=== PATIENT | female | born 1940 | race Caucasian/White ===

== ENCOUNTER 2018-07-09 12:28 | Outpatient (CLI) | payer MEDICARE, BC ==
--- NOTE | 2018-07-09 14:19 | CT ---
CT BRAIN WITHOUT CONTRAST: HISTORY: Contusion of face, fell in bathroom. Bruising around the right eye and complains of headache. FINDINGS: There are changes of cortical atrophy and chronic small-vessel ischemic disease. The ventricular siz e is appropriate and the basilar cisterns patent. No evidence of acute infarct, hemorrhage, midline shift, or abnormal extraaxial fluid collections is seen. The bony calvarium is intact. The visualiz ed paranasal sinuses and mastoid air cells are well aerated. IMPRESSION: No CT evidence of acute intracranial process. POS: [facility]
== END 2018-07-09 12:29 | disposition home or self-care (01) ==
LOC: BICCT 12:28
PROVIDERS: ATTEND Family Medicine
DX: S00.83XA Contusion of other part of head, initial encounter (principal)
CPT/HCPCS: 70450

== ENCOUNTER 2019-02-27 09:42 | Outpatient (CLI) | payer MEDICARE, BC ==
--- NOTE | 2019-02-27 11:24 | ULT ---
ULTRASOUND SOFT TISSUE NECK: HISTORY: Mass. COMPARISON: None. FINDINGS: No abnormal mass is appreciated. No adenopathy. IMPRESSION: No abnormal mass or adenopathy. CT or MRI may be obtained for further investigation, as clinically w arranted. POS: [facility]
== END 2019-02-27 09:43 | disposition home or self-care (01) ==
LOC: BICULT 09:42
PROVIDERS: ATTEND Family Medicine
DX: R22.1 Localized swelling, mass and lump, neck (principal)
CPT/HCPCS: 76536